=== PATIENT | female | born 1990 | race Asian ===

== ENCOUNTER 2018-11-16 09:55 | Outpatient (CLI) | payer OTHER ==
[~2018-11-16] VITALS: Ht 157.5 cm; Wt 56.8 kg
[2018-11-16 10:04] VITALS: BP 93/50
[2018-11-16 10:55] LABS: MICROSCOPIC NOT IND
[2018-11-16 10:56] LABS: CULTURE INDICATED? NO
[2018-11-16] MEDS ORDERED: TERBUTALINE 1 MG/ML, 1ML SQ ONE (11:30)
== END 2018-11-16 13:30 | disposition home or self-care (01) ==
LOC: LDOP 09:55
PROVIDERS: ATTEND Obstetrics & Gynecology
DX: O42.913 Preterm premature rupture of membranes, unspecified as to length of time between rupture and onset of labor, third trimester (principal); Z3A.30 30 weeks gestation of pregnancy
CPT/HCPCS: 76815; 81003; 84112; J3105; 59025; 99211; G0463

== ENCOUNTER 2019-01-19 16:50 | Inpatient (IN) | payer OTHER ==
[~2019-01-19] VITALS: Ht 157.5 cm; Wt 60.0 kg
[2019-01-25 07:45] VITALS: BP 94/56
== END 2019-01-25 14:19 | disposition home or self-care (01) | DRG 807 ==
LOC: LDIP 01-22 20:31 → 2NW 01-23 17:35
PROVIDERS: ADMIT Obstetrics & Gynecology; ATTEND Obstetrics & Gynecology
PROC: 10E0XZZ Delivery of Products of Conception, External Approach (ICD-10-PCS; principal; 2019-01-23)
PROC: 0KQM0ZZ Repair Perineum Muscle, Open Approach (ICD-10-PCS; 2019-01-23)
PROC: 3E0R3BZ Introduction of Anesthetic Agent into Spinal Canal, Percutaneous Approach (ICD-10-PCS; 2019-01-23)
PROC: 00HU33Z Insertion of Infusion Device into Spinal Canal, Percutaneous Approach (ICD-10-PCS; 2019-01-23)
DX: O48.0 Post-term pregnancy (principal); Z37.0 Single live birth; O70.1 Second degree perineal laceration during delivery; Z3A.40 40 weeks gestation of pregnancy
CPT/HCPCS: 36415; S0020; 85025; 86850; 86900; G0378; J3010; J2590; J7050; J7120